=== PATIENT | male | born 1970 | race Caucasian/White ===

== ENCOUNTER → 2021-07-20 08:24 | Outpatient (CLI) | payer OTHER, SELFPAY ==
[2021-07-20 09:18] LABS: BUN Creatinine Ratio 15.5 (6-22); Blood Urea Nitrogen 20 mg/dL (9-20); Carbon Dioxide 29 mmol/L (22-32); Chloride 107 mmol/L (98-107); Cholesterol 143 mg/dL (140-199); Estimated Glomerular Filt Rate 58.5 mL/min (>60); Glucose 118 mg/dL (70-100); HDL Cholesterol 46 mg/dL (40-60); HEMOLYSIS < 15 (0-50); LDL Cholesterol Calculated 81 mg/dL (<100); Sodium 141 mmol/L (137-145); Triglycerides 79 mg/dL (35-150)
[2021-07-20 09:23] LABS: Add Manual Diff / Slide Review NO; Basophils Absolute Auto 0 /uL (0-100); Basophils Percent Auto 0.3 % (0-2); Eosinophils Absolute Auto 100 /uL (0-450); Eosinophils Percent Auto 3.6 % (2-4); Hematocrit 39.7 % (41-53); Hemoglobin 13.8 g/dL (13.5-17.5); Lymphocytes Absolute Auto 1300 /uL (1100-4500); Lymphocytes Percent Auto 34.6 % (25-40); Mean Corpuscular HGB Conc 34.8 % (30-36); Mean Corpuscular Hemoglobin 31.4 PG (26-34); Mean Corpuscular Volume 90.3 fL (80-100); Monocytes Absolute Auto 300 /uL (0-900); Neutrophils Absolute Auto 2000 /uL (1500-7000); Neutrophils Percent Auto 52.5 % (50-75); Platelet Count 208 X10^3/uL (150-400); Red Blood Cell Count 4.39 X10^6/uL (4.5-5.9); Red Cell Distribution Width 13.1 % (11.6-14.8); White Blood Cell Count 3.8 X10^3/uL (4.5-11.0)
[2021-07-20 09:47] LABS: Prostate Specific Antigen Scrn 0.271 ng/mL (0.1-4.0)
== END ==
PROVIDERS: PCP Family Medicine; Referring Provider Family Medicine; Visit Provider Family Medicine
DX: Z13.220 Encounter for screening for lipoid disorders (principal); Z12.5 Encounter for screening for malignant neoplasm of prostate
CPT/HCPCS: 36415; 80048; 80061; 85025; G0103

== ENCOUNTER → 2021-11-23 09:03 | Outpatient (CLI) | payer OTHER, SELFPAY ==
[2021-11-23 10:28] LABS: Alanine Aminotransferase 28 IU/L (<50); Albumin 4.8 g/dL (3.5-5.0); Albumin Globulin Ratio 1.8 (1.0-2.8); Alkaline Phosphatase 58 U/L (38-126); Aspartate Aminotransferase 26 IU/L (17-59); BUN Creatinine Ratio 16.8 (6-22); Bilirubin Total 0.7 mg/dL (0.2-1.3); Blood Urea Nitrogen 19 mg/dL (9-20); Calcium 9.4 mg/dL (8.4-10.2); Carbon Dioxide 29 mmol/L (22-32); Chloride 101 mmol/L (98-107); Estimated Glomerular Filt Rate > 60 mL/min (>60); Globulin 2.7 g/dL (1.7-4.1); Glucose 102 mg/dL (70-100); HEMOLYSIS < 15 (0-50); Potassium 4.8 mmol/L (3.4-5.1); Sodium 140 mmol/L (137-145); Total Protein 7.5 g/dL (6.3-8.2)
== END ==
PROVIDERS: PCP Family Medicine; Referring Provider Family Medicine; Visit Provider Family Medicine
DX: R73.01 Impaired fasting glucose (principal); R94.4 Abnormal results of kidney function studies
CPT/HCPCS: 36415; 80053

== ENCOUNTER → 2022-05-17 09:05 | Outpatient (CLI) | payer OTHER, SELFPAY ==
[2022-05-17 09:58] LABS: Influenza A - CEPHEID Flu A NEGATIVE (NEGATIVE); Influenza B - CEPHEID Flu B NEGATIVE (NEGATIVE); Respiratory Syncytial Virus Negative (Negative)
[2022-05-17 10:02] LABS: COVID-19 CEPHEID 4-PLEX PCR Negative (Negative)
== END ==
PROVIDERS: PCP Family Medicine; Visit Provider Registered Nurse
DX: R19.7 Diarrhea, unspecified (principal); J06.9 Acute upper respiratory infection, unspecified; Z20.822 Contact with and (suspected) exposure to COVID-19
CPT/HCPCS: 0241U; 87045; 87899

== ENCOUNTER → 2022-05-17 14:27 | Outpatient (CLI) | payer OTHER, SELFPAY | PROVIDERS: PCP Family Medicine; Referring Provider Registered Nurse; Visit Provider Registered Nurse | DX: R19.7 Diarrhea, unspecified (principal) | CPT/HCPCS: 87045; 87899 ==

== ENCOUNTER → 2023-07-08 09:28 | Outpatient (CLI) | payer OTHER, SELFPAY ==
[2023-07-08 10:53] LABS: Add Manual Diff / Slide Review NO; Basophils Absolute Auto 0 /uL (0-100); Basophils Percent Auto 0.4 % (0-2); Eosinophils Absolute Auto 200 /uL (0-450); Eosinophils Percent Auto 4.3 % (2-4); Hematocrit 41.2 % (41-53); Hemoglobin 14.4 g/dL (13.5-17.5); Lymphocytes Absolute Auto 1900 /uL (1100-4500); Lymphocytes Percent Auto 43.7 % (25-40); Mean Corpuscular HGB Conc 34.9 % (30-36); Mean Corpuscular Hemoglobin 31.7 PG (26-34); Mean Corpuscular Volume 90.9 fL (80-100); Monocytes Absolute Auto 300 /uL (0-900); Monocytes Percent Auto 7.3 % (3-14); Neutrophils Absolute Auto 2000 /uL (1500-7000); Neutrophils Percent Auto 44.3 % (50-75); Platelet Count 225 X10^3/uL (150-400); Red Blood Cell Count 4.53 X10^6/uL (4.5-5.9); White Blood Cell Count 4.4 X10^3/uL (4.5-11.0)
[2023-07-08 11:29] LABS: Alanine Aminotransferase 31 IU/L (<50); Albumin 4.4 g/dL (3.5-5.0); Albumin Globulin Ratio 1.5 (1.0-2.8); Alkaline Phosphatase 53 U/L (38-126); Aspartate Aminotransferase 25 IU/L (17-59); Bilirubin Total 0.6 mg/dL (0.2-1.3); Blood Urea Nitrogen 18 mg/dL (9-20); Calcium 9.6 mg/dL (8.4-10.2); Carbon Dioxide 28 mmol/L (22-32); Chloride 107 mmol/L (98-107); Cholesterol 181 mg/dL (140-199); Estimated Glomerular Filt Rate > 60 mL/min (>60); Glucose 111 mg/dL (70-100); HDL Cholesterol 45 mg/dL (40-60); HEMOLYSIS < 15 (0-50); LDL Cholesterol Calculated 100 mg/dL (<100); Potassium 4.6 mmol/L (3.4-5.1); Sodium 141 mmol/L (137-145); Total Protein 7.4 g/dL (6.3-8.2); Triglycerides 178 mg/dL (35-150)
[2023-07-08 12:08] LABS: Prostate Specific Antigen Scrn 0.396 ng/mL (0.1-4.0)
[2023-07-18 06:37] LABS: Percent Free Testosterone 3.62 % (1.50-4.20); Testosterone Free 8.77 ng/dL (5.00-21.00); Testosterone Total 242.3 ng/dL (264.0-916.0)
== END ==
LOC: LAB 09:29
PROVIDERS: PCP Family Medicine; Referring Provider Family Medicine; Visit Provider Family Medicine
DX: R73.01 Impaired fasting glucose (principal); R94.4 Abnormal results of kidney function studies; Z13.220 Encounter for screening for lipoid disorders; Z12.5 Encounter for screening for malignant neoplasm of prostate; E29.1 Testicular hypofunction
CPT/HCPCS: 36415; 80053; 80061; 84402; 84403; 85025; G0103

== ENCOUNTER → 2023-07-19 09:54 | Outpatient (CLI) | payer OTHER, SELFPAY ==
[2023-07-25 15:40] LABS: Percent Free Testosterone 2.24 % (1.50-4.20); Testosterone Free 3.68 ng/dL (5.00-21.00); Testosterone Total 164.5 ng/dL (264.0-916.0)
== END ==
LOC: LAB 09:55
PROVIDERS: PCP Family Medicine; Referring Provider Family Medicine; Visit Provider Family Medicine
DX: R79.89 Other specified abnormal findings of blood chemistry (principal)
CPT/HCPCS: 36415; 84402; 84403

== ENCOUNTER → 2023-07-31 15:18 | Outpatient (CLI) | payer OTHER, SELFPAY ==
[2023-07-31 19:29] LABS: TSH w/ Reflex to FT4 3.48 uIU/mL (0.47-4.68)
== END ==
LOC: LAB 15:19
PROVIDERS: PCP Family Medicine; Referring Provider Physician Assistant; Visit Provider Physician Assistant
DX: E29.1 Testicular hypofunction (principal)
CPT/HCPCS: 36415; 84443

== ENCOUNTER → 2023-09-12 09:01 | Outpatient (CLI) | payer OTHER, SELFPAY ==
[2023-09-12 09:21] LABS: Add Manual Diff / Slide Review NO; Basophils Absolute Auto 0 /uL (0-100); Basophils Percent Auto 0.5 % (0-2); Eosinophils Absolute Auto 200 /uL (0-450); Eosinophils Percent Auto 3.3 % (2-4); Hematocrit 41.5 % (41-53); Hemoglobin 14.5 g/dL (13.5-17.5); Lymphocytes Absolute Auto 2000 /uL (1100-4500); Lymphocytes Percent Auto 33.2 % (25-40); Mean Corpuscular Hemoglobin 32.5 PG (26-34); Mean Corpuscular Volume 92.8 fL (80-100); Monocytes Absolute Auto 500 /uL (0-900); Monocytes Percent Auto 8.6 % (3-14); Neutrophils Absolute Auto 3300 /uL (1500-7000); Neutrophils Percent Auto 54.4 % (50-75); Platelet Count 271 X10^3/uL (150-400); Red Blood Cell Count 4.47 X10^6/uL (4.5-5.9); Red Cell Distribution Width 13.5 % (11.6-14.8)
[2023-09-12 09:44] LABS: Alanine Aminotransferase 36 IU/L (<50); Albumin 4.5 g/dL (3.5-5.0); Albumin Globulin Ratio 1.7 (1.0-2.8); Alkaline Phosphatase 52 U/L (38-126); Aspartate Aminotransferase 27 IU/L (17-59); BUN Creatinine Ratio 14.4 (6-22); Bilirubin Total 0.6 mg/dL (0.2-1.3); Blood Urea Nitrogen 16 mg/dL (9-20); Calcium 9.8 mg/dL (8.4-10.2); Carbon Dioxide 30 mmol/L (22-32); Chloride 107 mmol/L (98-107); Estimated Glomerular Filt Rate > 60 mL/min (>60); Globulin 2.6 g/dL (1.7-4.1); Glucose 118 mg/dL (70-100); HEMOLYSIS < 15 (0-50); Potassium 4.5 mmol/L (3.4-5.1); Sodium 143 mmol/L (137-145); Total Protein 7.1 g/dL (6.3-8.2)
== END ==
PROVIDERS: PCP Family Medicine; Referring Provider Physician Assistant; Visit Provider Physician Assistant
DX: E29.1 Testicular hypofunction (principal)
CPT/HCPCS: 36415; 80053; 84402; 84403; 85025

== ENCOUNTER → 2023-12-05 09:22 | Outpatient (CLI) | payer OTHER, SELFPAY ==
[2023-12-05 10:21] LABS: Alanine Aminotransferase 38 IU/L (<50); Albumin 4.4 g/dL (3.5-5.0); Albumin Globulin Ratio 1.6 (1.0-2.8); Alkaline Phosphatase 51 U/L (38-126); Aspartate Aminotransferase 29 IU/L (17-59); BUN Creatinine Ratio 13.6 (6-22); Bilirubin Total 0.6 mg/dL (0.2-1.3); Blood Urea Nitrogen 17 mg/dL (9-20); Calcium 9.7 mg/dL (8.4-10.2); Carbon Dioxide 28 mmol/L (22-32); Chloride 105 mmol/L (98-107); Estimated Glomerular Filt Rate > 60 mL/min (>60); Globulin 2.7 g/dL (1.7-4.1); Glucose 117 mg/dL (70-100); HEMOLYSIS < 15 (0-50); Potassium 4.8 mmol/L (3.4-5.1); Sodium 138 mmol/L (137-145); Total Protein 7.1 g/dL (6.3-8.2)
[2023-12-10 09:37] LABS: Percent Free Testosterone 4.32 % (1.50-4.20); Testosterone Free 43.71 ng/dL (5.00-21.00); Testosterone Total 1011.9 ng/dL (264.0-916.0)
== END ==
PROVIDERS: PCP Family Medicine; Referring Provider Family Medicine; Visit Provider Family Medicine
DX: E29.1 Testicular hypofunction (principal); R79.89 Other specified abnormal findings of blood chemistry
CPT/HCPCS: 36415; 80053; 84402; 84403

== ENCOUNTER → 2024-01-30 09:19 | Outpatient (CLI) | payer OTHER, SELFPAY ==
[2024-02-05 12:11] LABS: Testosterone Free 32.12 ng/dL (5.00-21.00); Testosterone Total 973.2 ng/dL (264.0-916.0)
== END ==
PROVIDERS: PCP Family Medicine; Referring Provider Family Medicine; Visit Provider Family Medicine
DX: E29.1 Testicular hypofunction (principal); R79.89 Other specified abnormal findings of blood chemistry
CPT/HCPCS: 36415; 84402; 84403

== ENCOUNTER → 2024-05-14 09:15 | Outpatient (CLI) | payer OTHER, SELFPAY ==
[2024-05-14 09:55] LABS: Hematocrit 42.6 % (41-53); Mean Corpuscular HGB Conc 35.3 % (30-36); Mean Corpuscular Hemoglobin 32.4 PG (26-34); Mean Corpuscular Volume 91.7 fL (80-100); Platelet Count 258 X10^3/uL (150-400); Red Blood Cell Count 4.64 X10^6/uL (4.5-5.9); Red Cell Distribution Width 12.7 % (11.6-14.8); White Blood Cell Count 5.1 X10^3/uL (4.5-11.0)
== END ==
LOC: LAB 09:16
PROVIDERS: PCP Family Medicine; Referring Provider Family Medicine; Visit Provider Family Medicine
DX: R79.89 Other specified abnormal findings of blood chemistry (principal); I10 Essential (primary) hypertension
CPT/HCPCS: 36415; 84402; 84403; 85027

== ENCOUNTER → 2024-05-19 13:07 | Outpatient (CLI) | payer OTHER, SELFPAY ==
[2024-05-19 13:58] LABS: Influenza A - CEPHEID Flu A NEGATIVE (NEGATIVE); Influenza B - CEPHEID Flu B NEGATIVE (NEGATIVE); Respiratory Syncytial Virus Negative (Negative)
[2024-05-19 14:03] LABS: COVID-19 CEPHEID 4-PLEX PCR Negative (Negative)
== END ==
PROVIDERS: PCP Family Medicine; Visit Provider Nurse Practitioner Family
DX: R05.1 Acute cough (principal); J02.9 Acute pharyngitis, unspecified
CPT/HCPCS: 0241U; 87070

== ENCOUNTER → 2024-10-10 10:08 | Outpatient (CLI) | payer OTHER, SELFPAY ==
--- NOTE | 2024-10-10 10:10 | DI.RAD.S_ITS ---
PROCEDURE: XR RIBS RT MIN 3V W CXR 1V INDICATIONS: r/o fracture TECHNIQUE: 2 views of the ribs were acquired, along with a single view chest. COMPARISON: None. FINDINGS: Surgical changes and devices: None. Bones and chest wall: No fractures or dislocations. No suspicious bony lesions. Overlying soft tissues appear unremarkable. Lungs and pleura: Moderate right-sided apical and subpulmonic pneumothorax approximately 30 - 40%. Left lung pleural space clear. No mediastinal shift. Mediastinum: Mediastinal contours appear normal. Heart size is normal. IMPRESSION: Moderate right pneumothorax without visualized fracture. Note: Critical results were discussed with a physician in the ER by the technologist around 09:20 AM [place] time on 10/10/24. Patient was escorted to the emergency room for evaluation. Approved by: Avel Ac M.D. on 10/10/2024 at 9:40
== END ==
LOC: RAD 10:09
PROVIDERS: PCP Family Medicine; Referring Provider Family Medicine; Visit Provider Chiropractor
DX: S20.211A Contusion of right front wall of thorax, initial encounter (principal); J93.9 Pneumothorax, unspecified
CPT/HCPCS: 71101

== ENCOUNTER 2024-10-10 10:43 | Observation (INO) | payer OTHER, SELFPAY ==
[2024-10-10] VITALS (29 sets, daily range): BP systolic 130–183; BP diastolic 75–107; PULSE 58–75; RESP 14–26; TEMP 36.1–37.1; O2SAT 95–100; BMI 32.5
--- NOTE | 2024-10-10 10:58 | EKG_ITS ---
[facility] [address] [place] [address] Test Date: 2024-10-10 Pat Name: Jaxson Richardson Department: Room: 216 Gender: Male Detail Drafter: ALEXANDR : 1970 Requested By: Order Number: [id number] Reading MD: Adi Mendenhall Measurements Intervals [place] Rate: 69 P: 41 W[place]: 144 QRS: -2 QRSD: 72 T: 4 QT: 358 QTc: 383 Interpretive Statements Normal sinus rhythm Nonspecific ST and T wave abnormality Electronically Signed On 10-15-2024 0:01:12 PDT by Adi Mendenhall
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
--- NOTE | 2024-10-10 11:13 | PC.NURSE ---
Dr. Day during assessment asked this RN to place patient on 10L oxygen non rebreather mask. This RN placed as ordered.
[2024-10-10 11:23] LABS: Add Manual Diff / Slide Review NO; Basophils Absolute Auto 0 /uL (0-100); Basophils Percent Auto 0.3 % (0-2); Eosinophils Absolute Auto 200 /uL (0-450); Eosinophils Percent Auto 2.7 % (2-4); Hematocrit 42.4 % (41-53); Hemoglobin 14.7 g/dL (13.5-17.5); Lymphocytes Absolute Auto 1800 /uL (1100-4500); Lymphocytes Percent Auto 24.1 % (25-40); Mean Corpuscular HGB Conc 34.7 % (30-36); Mean Corpuscular Hemoglobin 32.3 PG (26-34); Monocytes Absolute Auto 600 /uL (0-900); Monocytes Percent Auto 8.8 % (3-14); Neutrophils Absolute Auto 4700 /uL (1500-7000); Neutrophils Percent Auto 64.1 % (50-75); Platelet Count 211 X10^3/uL (150-400); Red Blood Cell Count 4.56 X10^6/uL (4.5-5.9); Red Cell Distribution Width 13.2 % (11.6-14.8); White Blood Cell Count 7.3 X10^3/uL (4.5-11.0)
[2024-10-10 11:27] LABS: Prothrombin Time 11.5 SECONDS (9.4-12.5)
[2024-10-10 11:30] LABS: Lactate (Lactic Acid) 0.9 mmol/L (0.7-2.1); PTT Partial Thromboplastin Tim 31 SECONDS (25.1-36.5)
[2024-10-10 11:31] LABS: Alanine Aminotransferase 32 IU/L (<50); Albumin 4.4 g/dL (3.5-5.0); Albumin Globulin Ratio 1.5 (1.0-2.8); Alkaline Phosphatase 56 U/L (38-126); Aspartate Aminotransferase 35 IU/L (17-59); BUN Creatinine Ratio 11.9 (6-22); Bilirubin Total 0.9 mg/dL (0.2-1.3); Blood Urea Nitrogen 15 mg/dL (9-20); Calcium 9.3 mg/dL (8.4-10.2); Carbon Dioxide 28 mmol/L (22-32); Chloride 104 mmol/L (98-107); Estimated Glomerular Filt Rate > 60 mL/min (>60); Ethanol (ETOH) < 10 mg/dL (<10); Glucose 94 mg/dL (70-99); HEMOLYSIS < 15 (0-50); Lipase 110 U/L (23-300); Potassium 4.9 mmol/L (3.4-5.1); Sodium 138 mmol/L (137-145); Total Protein 7.4 g/dL (6.3-8.2)
[2024-10-10] MEDS: TET,DIPH,PERTUSS(ACELL),VAC/PF 0.5 ML SYRINGE IM (11:40)
[2024-10-10] MEDS: LIDOCAINE 1% 20 ML 5 ML SUBCUT (11:59)
--- NOTE | 2024-10-10 12:15 | DI.RAD.S_ITS ---
PROCEDURE: XR CHEST 1V INDICATIONS: post nellie catheter/pneumothorax TECHNIQUE: One view of the chest was acquired. COMPARISON: [facility], CR, XR RIBS RT MIN 3V W CXR 1V, 10/10/2024, 10:13. FINDINGS: Surgical changes and devices: Well-positioned right apical pigtail pleural drain Lungs and pleura: Lungs are clear. No pleural effusions or pneumothorax. Mediastinum: Mediastinal contours appear normal. Heart size is normal. Bones and chest wall: No suspicious bony lesions. Overlying soft tissues appear unremarkable. IMPRESSION: Well-positioned right apical pigtail pleural drain with resolution of previously noted pneumothorax Approved by: Avel Ac M.D. on 10/10/2024 at 11:39
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
--- NOTE | 2024-10-10 12:36 | PC.NURSE ---
This RN was with Dr. Shaver. This RN witnessed provider explain procedure and witnessed patient consent. Patient suction is on 40 at the wall. when patient takes deep breath bubbles are noted in the atrium machine. Dr. Shaver secured chest tube to patient abdominal wall.
--- NOTE | 2024-10-10 12:42 | PM.OP.1 ---
Operative Date/Time/Diagnoses Date of procedure: 10/10/24 Time of procedure: 12:15 Pre-op diagnosis: Right pneumothorax Post-op diagnosis: same Procedure & Clinicians Procedure: Right tube thoracostomy Same procedure as scheduled: Yes Indications: Right pneumothorax Surgeon: Kvng Swartz Click Yes if Unassisted: Yes Anesthesia Type: Local Operative Notes Findings: Lung re-expanded postprocedure on chest x-ray Specimen(s): none sent Estimated Blood Loss (mL): 1 Blood products transfused: none Procedure in detail: After obtaining informed consent the patient was retained on the gurney in the [facility] [place]. The right chest was prepped and draped in the usual sterile manner and a 6 mm incision was made with an 11 blade in the anterior axillary line over the 5th interspace through a 1% xylocaine field block. The needle dilator and 10.5 Polish pneumothorax catheter was assembled and was passed into the right pleural cavity through the 4th interspace over the top of the 5th rib. The catheter was advanced and the needle and dilator were withdrawn. The catheter was connected to 20 cm water suction by thoracal flex and was secured to the chest wall with a 3-0 nylon stitch. A dressing was applied. Postprocedural plain film demonstrated complete re-expansion of the lung with the catheter properly positioned over the apex of the right lung. The patient was retained in the [facility] [place] for continued treatment and will be admitted for observation. Complications: none Post-operative Condition: stable Disposition: Acute Care Plan for aftercare: Discontinued tube thoracostomy when pneumothorax resolved.
[2024-10-10] MEDS: HYDROCODONE/ACET 5/325 TABLET 1 TAB PO (13:06)
--- NOTE | 2024-10-10 13:20 | PC.NURSE ---
Dr. Costello took patient off 10L non rebreather post 2nd chest c-ray with pigtail confirmation.
--- NOTE | 2024-10-10 13:22 | PC.NURSE ---
This RN gave verbal report to DESIRAE Macchild care aide.
--- NOTE | 2024-10-10 14:41 | PC.NURSE ---
Upon arrival to floor patient c/o sharp spasm pain in RT pectoral muscle that radiates to his back, patient states this pain is a new onset of pain. Notified surgeon of new onset pain. Provider states, this is normal. No further orders/action to be take at this time.
[2024-10-10] MEDS: HYDROMORPHONE 0.5 MG INJ IV ×2 (14:58→21:12)
[2024-10-10] MEDS: LACTATED RINGERS 1,000 ML 125 ML IV ×2 (14:59→22:29)
[2024-10-10] MEDS: ACETAMINOPHEN 325 MG TABLET 650 MG PO (15:00)
--- NOTE | 2024-10-10 15:26 | PC.NURSE ---
Admit note: Received patient from ED, awake alert and oriented. Chest tube placed by surgeon in ED to left lateral upper chest wall, secured in place. Chest tube @ 20 cm H20 secured tubing to chest wall, no kinks to tubing. Chest tube cart readily available outside room. Patient sitting in bed, speaking in full sentences. Remains on RA, sats 98%. Lateral upper chest wall pain to region of tube insertion, described as sharp ache, pain adequately controlled with ordered medications. IVF initiated and SCDs placed. Dressing to right forearm removed, was previously place by spouse. Large area abrasion to anterior forearm noted from fall. Abrasion with varying degrees of shallow layers removed of skin from injury. Non purulent, no active bleeing. Area clean by this RN, and left open to air. (Please see photos) Oriented to room, environment, and plan of care. Spouse at bedside providing supportive care. Call light within reach.
[2024-10-10] MEDS: HYDROCODONE/ACET 5/325 TABLET 2 TAB PO (18:17)
[2024-10-11] VITALS (8 sets, daily range): BP systolic 122–157; BP diastolic 80–92; PULSE 63–71; RESP 16–19; TEMP 36.4–36.6; O2SAT 94–98
[2024-10-11] MEDS: HYDROMORPHONE 0.5 MG INJ IV ×2 (03:05→06:35)
--- NOTE | 2024-10-11 07:00 | DI.RAD.S_ITS ---
PROCEDURE: XR CHEST 1V INDICATIONS: chest tube TECHNIQUE: One view of the chest was acquired. COMPARISON: [facility], CR, XR CHEST 1V, 10/10/2024, 12:08. FINDINGS: Surgical changes and devices: Right-sided chest tube is again seen. Lungs and pleura: No gross pneumothorax. No definite focal infiltrate. No significant pleural effusion. Left basilar atelectasis is seen. Mediastinum: Mediastinal contours appear normal. Heart size is normal. Bones and chest wall: No suspicious bony lesions. Overlying soft tissues appear unremarkable. IMPRESSION: No obvious pneumothorax. Right-sided chest tube in place. Dictated by: Alberto Gaytan M.D. on 10/11/2024 at 9:03 Approved by: Alberto Gaytan M.D. on 10/11/2024 at 9:03
[2024-10-11] MEDS: HYDROCODONE/ACET 5/325 TABLET 2 TAB PO ×3 (07:57→21:12)
--- NOTE | 2024-10-11 08:18 | P.PN_ITS ---
Subjective Subjective Date Patient Seen: 10/11/24 Time Patient Seen: 08:00 Interval history: Feels well. No shortness of breath. Occasional right-sided pleuritic chest pain. Exam Vital Signs (past 8 hours): - 10/11/24 01:00 10/11/24 04:48 10/11/24 05:00 Temperature 97.8 F Pulse Rate 64 Respiratory Rate 19 Blood Pressure 122/86 Pulse Oximetry 96 97 95 Oxygen Delivery Method Room Air Room Air Oxygen Flow Rate 0 0 Oxygen Delivery Method Room Air Oxygen Flow Rate 0 Narrative Exam Narrative: Lungs are clear to auscultation bilaterally. There is a soft pleural rub audible at the right apex. Chest tube is in place and there is no air leak. Heart has a regular rate and rhythm with no murmur or gallop. Abdomen is soft and nontender. Bowel sounds are normal. Objective Labs 10/10/24 11:10 10/10/24 11:10 Labs: Laboratory Results - last 24 hr 10/10/24 10/10/24 11:10 11:31 WBC 7.3 RBC 4.56 Hgb 14.7 Hct 42.4 MCV 93.0 MCH 32.3 MCHC 34.7 RDW 13.2 Plt Count 211 Neut % (Auto) 64.1 Lymph % (Auto) 24.1 L Day % (Auto) 8.8 Eos % (Auto) 2.7 Baso % (Auto) 0.3 Neut # (Auto) 4700 Lymph # (Auto) 1800 Day # (Auto) 600 Eos # (Auto) 200 Baso # (Auto) 0 PT 11.5 INR 1.0 APTT 31 Sodium 138 Potassium 4.9 Chloride 104 Carbon Dioxide 28 BUN 15 Creatinine 1.26 H Estimated GFR > 60 BUN/Creatinine Ratio 11.9 Glucose 94 Lactate 0.9 Calcium 9.3 Total Bilirubin 0.9 AST 35 ALT 32 Alkaline Phosphatase 56 Total Protein 7.4 Albumin 4.4 Globulin 3.0 Albumin/Globulin Ratio 1.5 Lipase 110 Ethyl Alcohol < 10 Blood Type A Positive Antibody Screen Negative [facility] Medical History HTN (hypertension) Low serum testosterone Umbilical hernia with obstruction, without gangrene Elevated fasting glucose Decreased GFR Skin rash Numerous moles Herpes genitalis in men (~1996) Surgical History Anesthesia History of arthroscopic knee surgery (~2013) Family History Brother History of heart disease Social History household members: spouse other: Patient is adopted and has no information about his family health history. Smoking Status: Never smoker alcohol intake: current substance use type: does not use Assessment & Plan Assessment and plan (1) Pneumothorax on right: Status: Acute Plan Air leak appears to have sealed. We will place chest tube to water seal and repeat chest x-ray in the morning tomorrow. Consider discharge to home at that time if his lung stays up. Time-Based Coding :: [TOTAL MINUTES] spent with patient and on the chart (including review of chart, obtaining history, exam, reviewing outside data, placing orders, documenting exam and treatment plan, and counseling patient) on [DATE]. 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
[2024-10-11] MEDS: ENOXAPARIN 40 MG/0.4 ML SYRINGE SUBCUT (08:36)
[2024-10-11] MEDS: lisinopriL 10 MG TABLET PO (11:15)
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
[2024-10-12 01:00] VITALS: O2SAT 97
[2024-10-12 02:11] VITALS: BP 141/91; PULSE 67; RESP 16; TEMP 36.8; O2SAT 97
[2024-10-12] MEDS: HYDROCODONE/ACET 5/325 TABLET 2 TAB PO ×2 (02:14→06:56)
[2024-10-12 05:00] VITALS: O2SAT 95
[2024-10-12 06:45] VITALS: PULSE 62; RESP 16; TEMP 36.6; O2SAT 96
--- NOTE | 2024-10-12 07:37 | DI.RAD.S_ITS ---
PROCEDURE: XR CHEST 1V INDICATIONS: Pneumothorax TECHNIQUE: One view of the chest was acquired. COMPARISON: [facility], , XR CHEST 1V, 10/11/2024, 6:13. [facility], CR, XR CHEST 1V, 10/10/2024, 12:08. FINDINGS: Surgical changes and devices: Pigtail catheter present. Lungs and pleura: Lungs are clear. No pleural effusions or pneumothorax. Mediastinum: Mediastinal contours appear normal. Heart size is normal. Bones and chest wall: No suspicious bony lesions. Overlying soft tissues appear unremarkable. IMPRESSION: No significant pneumothorax. Right-sided chest tube in place. Dictated by: Saeid Velez M.D. on 10/12/2024 at 8:35 Approved by: Saeid Velez M.D. on 10/12/2024 at 8:36
[2024-10-12] MEDS: lisinopriL 10 MG TABLET PO (08:58)
--- NOTE | 2024-10-12 09:06 | DI.RAD.S_ITS ---
PROCEDURE: XR CHEST 1V INDICATIONS: Pneumothorax TECHNIQUE: One view of the chest was acquired. COMPARISON: [facility], CR, XR CHEST 1V, 10/12/2024, 7:37. FINDINGS: Surgical changes and devices: Interval removal of previously noted right-sided chest tube. Lungs and pleura: Lungs are clear. No pleural effusions or pneumothorax. Mediastinum: Mediastinal contours appear normal. Heart size is normal. Bones and chest wall: No suspicious bony lesions. Overlying soft tissues appear unremarkable. IMPRESSION: No obvious pneumothorax is seen. Interval removal of right-sided chest tube. Dictated by: Alberto Gaytan M.D. on 10/12/2024 at 9:23 Approved by: Alberto Gaytan M.D. on 10/12/2024 at 9:24
--- NOTE | 2024-10-12 09:08 | PM.PN.IH.1 ---
Subjective Subjective Date Patient Seen: 10/12/24 Time Patient Seen: 08:30 Interval history: Feels well. Minimal right-sided chest pain on taking a deep breath. Exam Vital Signs (past 8 hours): - 10/12/24 02:11 10/12/24 05:00 10/12/24 06:45 Temperature 98.2 F 98 F Pulse Rate 67 62 Respiratory Rate 16 16 Blood Pressure 141/91 H Pulse Oximetry 97 95 96 Oxygen Delivery Method Room Air Oxygen Flow Rate 0 0 0 Oxygen Delivery Method Room Air Oxygen Flow Rate 0 Narrative Exam Narrative: Heart has a regular rate and rhythm with no murmur or gallop. Abdomen is soft and nontender with normal bowel sounds. Lungs are clear to auscultation. Minimal pleural rub at the right apex. Chest x-ray demonstrates no residual pneumothorax. Physical exam demonstrates no air leak. Chest tube is discontinued. Objective Labs 10/10/24 11:10 10/10/24 11:10 [facility] Medical History HTN (hypertension) Low serum testosterone Umbilical hernia with obstruction, without gangrene Elevated fasting glucose Decreased GFR Skin rash Numerous moles Herpes genitalis in men (~1996) Surgical History Anesthesia History of arthroscopic knee surgery (~2013) Family History Brother History of heart disease Social History household members: spouse other: Patient is adopted and has no information about his family health history. Smoking Status: Never smoker alcohol intake: current substance use type: does not use Assessment & Plan Assessment and plan (1) Pneumothorax on right: Status: Acute Plan Resolved right pneumothorax. Chest tube is out. Repeat chest x-ray. Discharge to home if right lung stays up. Time-Based Coding :: [TOTAL MINUTES] spent with patient and on the chart (including review of chart, obtaining history, exam, reviewing outside data, placing orders, documenting exam and treatment plan, and counseling patient) on [DATE]. 

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
== END 2024-10-12 10:10 | disposition home or self-care (01) ==
LOC: ED 10:57 → AC 12:58
PROVIDERS: Admitting Provider Surgery; Emergency Provider Emergency Medicine; PCP Family Medicine; Referring Provider Emergency Medicine; Visit Provider Surgery
DX: J93.9 Pneumothorax, unspecified (principal); S22.41XA Multiple fractures of ribs, right side, initial encounter for closed fracture; S50.811A Abrasion of right forearm, initial encounter; V19.3XXA Pedal cyclist (driver) (passenger) injured in unspecified nontraffic accident, initial encounter; I10 Essential (primary) hypertension
CPT/HCPCS: 32551; 36415; 71045; 71101; 80053; 80320; 83605; 83690; 85025; 85610; 85730; 86850; 86900; 86901; 90471; 93005; 96361; 96374; 96376; 99222; 99231; 99284; G0378; 90715; J1171; J1650

== ENCOUNTER → 2025-02-18 07:20 | Outpatient (CLI) | payer OTHER, SELFPAY ==
[2024-10-10 14:45] VITALS: BMI 32.5
--- NOTE | 2025-02-18 07:22 | DI.US.S_ITS ---
PROCEDURE: US SOFT TISSUE HEAD AND NECK INDICATIONS: diff swallowing. worse on the rt TECHNIQUE: Real-time scanning was performed of the neck region of interest, with image documentation. Color Doppler was also utilized. COMPARISON: None. FINDINGS: No enlarged lymph nodes can be seen involving either side of the neck. No significant thyroid abnormality is seen. IMPRESSION: No imaging explanation is found for this patient's presenting symptoms. No enlarged lymph nodes or thyroid abnormality can be seen. Dictated by: Endy Lopes M.D. on 02/18/2025 at 13:59 Approved by: Endy Lopes M.D. on 02/18/2025 at 13:59
== END ==
PROVIDERS: PCP Family Medicine; Referring Provider Family Medicine; Visit Provider Family Medicine
DX: R09.A2 Foreign body sensation, throat (principal)
CPT/HCPCS: 76536